=== PATIENT | male | born 1985 | race Asian ===

== ENCOUNTER 2021-10-25 07:49 | Emergency (ER) | payer MEDICAID ==
[~2021-10-25] VITALS: Ht 167.6 cm; Wt 60.4 kg
[2021-10-25 08:40] LABS: CLARITY,URINE CLOUDY (Clear); COLOR,URINE YELLOW (Yellow); GLUCOSE, URINE NEGATIVE (Neg); KETONES,URINE NEGATIVE (Neg); LEUKOCYTE ESTERASE ,URINE MODERATE (Neg); NITRITES, URINE NEGATIVE (Neg); OCCULT BLOOD,URINE TRACE-INTACT (Neg); PROTEIN,URINE TRACE mg/dl (Neg); UROBILINOGEN,URINE 0.2 E.U/dL (0.2-1.0)
[2021-10-25 08:41] LABS: UA COLLECTION TYPE CLN CATCH MIDSTREAM
[2021-10-25 08:54] LABS: MUCUS STRANDS FEW /LPF (Neg); SQUAMOUS EPITHELIAL CELL,UR NONE SEEN /LPF (FEW); WBC,URINE TNTC /HPF (0-4)
[2021-10-25 08:55] VITALS: BP 97/67
[2021-10-25 08:57] LABS: BACTERIA,URINE FEW /HPF (Neg); WBC CLUMPS,URINE FEW /HPF (NEGATIVE)
[2021-10-25] MEDS ORDERED: DOXYCYCLINE 100MG CAPSULE PO STA (09:00)
[2021-10-25] MEDS ORDERED: CefTRIAXone 1000mg IM Kit (w/lidocaine diluent) IM ONE (09:00)
[2021-10-25] MEDS ORDERED: CEPH-585 PO (09:05)
[2021-10-25] MEDS ORDERED: DOXY100C43 PO (09:05)
== END 2021-10-25 09:47 | disposition home or self-care (01) ==
LOC: ER 07:49
DX: N39.0 Urinary tract infection, site not specified (principal); Z72.89 Other problems related to lifestyle; Z79.899 Other long term (current) drug therapy
CPT/HCPCS: 36415; 81001; 87491; 87591; 96372; 99283; J0696

== ENCOUNTER 2022-05-03 | Emergency (ER) | payer MEDICAID, OTHER ==
[~2022-05-03] VITALS: Ht 167.6 cm; Wt 59.1 kg
[~2022-05-03] MED LIST: CEPH-585 PO
[2022-05-03] MEDS ORDERED: ketorolac trometh inj. 60 MG/2 ML VIAL IM ONE (06:40)
[2022-05-03] MEDS ORDERED: acetaminophen 325mg tablet PO ONE (06:40)
[2022-05-03] MEDS ORDERED: IBUP-1986 PO (06:43)
[2022-05-03] MEDS ORDERED: ACET-1025 PO (06:43)
[2022-05-03 06:49] VITALS: BP 107/55
== END 2022-05-03 06:56 | disposition home or self-care (01) ==
LOC: ER 00:01
DX: R51.9 Headache, unspecified (principal); V87.7XXA Person injured in collision between other specified motor vehicles (traffic), initial encounter; Y93.89 Activity, other specified; Y92.89 Other specified places as the place of occurrence of the external cause; Y99.8 Other external cause status
CPT/HCPCS: 96372; 99283; J1885

== ENCOUNTER 2023-01-08 23:17 | Emergency (ER) | payer MEDICAID ==
[~2023-01-08] VITALS: Ht 167.6 cm; Wt 59.1 kg
[~2023-01-08 23:17] MED LIST changes: -CEPH-585 PO; +IBUP-1986 PO
[2023-01-08 23:50] VITALS: BP 119/85; PULSE 80; RESP 16; TEMP 98; O2SAT 96
[2023-01-09 00:18] LABS: BILIRUBIN,URINE NEGATIVE (Neg); CLARITY,URINE TURBID (Clear); COLOR,URINE YELLOW (Yellow); GLUCOSE, URINE NEGATIVE (Neg); KETONES,URINE NEGATIVE (Neg); LEUKOCYTE ESTERASE ,URINE LARGE (Neg); NITRITES, URINE NEGATIVE (Neg); OCCULT BLOOD,URINE SMALL (Neg); PROTEIN,URINE NEGATIVE (Neg); UROBILINOGEN,URINE 0.2 E.U/dL (0.2-1.0)
[2023-01-09 00:26] LABS: UA COLLECTION TYPE OTHER
[2023-01-09 00:28] LABS: MUCUS STRANDS FEW /LPF (Neg); SQUAMOUS EPITHELIAL CELL,UR NONE SEEN /LPF (FEW)
[2023-01-09 00:35] LABS: BACTERIA,URINE FEW /HPF (Neg)
[2023-01-09 00:36] LABS: RENAL CELLS, URINE MODERATE /HPF
[2023-01-09 00:45] LABS: WBC CLUMPS,URINE MANY /HPF (NEGATIVE)
[2023-01-09] MEDS ORDERED: azithromycin 250mg tablet PO ONE (01:00)
[2023-01-09] MEDS ORDERED: CefTRIAXone 500MG IM Kit w/LIDOcaine IM ONE (01:00)
== END 2023-01-09 01:16 | disposition home or self-care (01) ==
LOC: ER 23:17
DX: A54.9 Gonococcal infection, unspecified (principal); A74.89 Other chlamydial diseases; A64 Unspecified sexually transmitted disease
CPT/HCPCS: 36415; 81001; 87088; 87491; 87591; 96372; 99283; J0696

== ENCOUNTER 2023-03-10 10:01 | Emergency (ER) | payer MEDICAID ==
[~2023-03-10] VITALS: Ht 167.6 cm; Wt 60.0 kg
--- NOTE | 2023-03-10 10:55 | NUR ---
LEASE ATTENDANT ASSESSMENT REVIEWED, BY POLO RN; APPROVED
[2023-03-10] MEDS ORDERED: CefTRIAXone 500MG IM Kit w/LIDOcaine IM ONE (12:15)
[2023-03-10] MEDS ORDERED: DOXY100C43 PO (12:18)
[2023-03-10 12:48] LABS: SYPHILIS SCREENING TEST POC NEGATIVE (Negative)
[2023-03-10 13:08] VITALS: BP 137/88; PULSE 61; RESP 18; TEMP 97.5; O2SAT 100
== END 2023-03-10 13:15 | disposition home or self-care (01) ==
LOC: ER 10:01
DX: A53.9 Syphilis, unspecified (principal)
CPT/HCPCS: 36415; 96372; 99283; J0696

== ENCOUNTER 2024-04-23 13:37 | Emergency (ER) | payer MEDICAID ==
[~2024-04-23] VITALS: Ht 167.6 cm; Wt 62.0 kg
[2024-04-23] MEDS: normal saline 1000ml 1,000 ML IV ONE (15:01)
[2024-04-23 15:24] LABS: BASOPHILS % (AUTO) 0.3 % (0-1); EOSINOPHILS % (AUTO) 0.3 % (0-6); HEMATOCRIT 34.6 % (42.0-52.0); HEMOGLOBIN 11.8 g/dl (14.0-17.9); LYMPHOCYTES # (AUTO) 1.4 X10'3 (1.1-4.8); LYMPHOCYTES % (AUTO) 27.2 % (21-51); MEAN CORPUSCULAR HEMOGLOBIN 32.2 PG (27.0-31.0); MEAN CORPUSCULAR HGB CONC 34.1 g/dL (33.0-36.5); MEAN CORPUSCULAR VOLUME 94.4 FL (78-98); MEAN PLATELET VOLUME 7.7 FL (7.4-10.4); MONOCYTES # (AUTO) 0.2 X10'3 (0-0.9); MONOCYTES % (AUTO) 4.4 % (2-12); NEUTROPHILS # (AUTO) 3.5 X10'3 (1.8-7.7); NEUTROPHILS % (AUTO) 67.8 % (42-75); PLATELET COUNT 165 X10'3 (140-440); RED BLOOD COUNT 3.66 X10'6 (4.70-6.10); RED CELL DISTRIBUTION WIDTH 14.5 % (11.5-14.5); WHITE BLOOD COUNT 5.2 X10'3 (4.5-11.0)
[2024-04-23 15:28] LABS: ALANINE AMINOTRANSFERASE 24 U/L (12-78); ALBUMIN 3.6 G/DL (3.4-5.0); ALBUMIN/GLOBULIN RATIO 1.2 (1.1-1.5); ALKALINE PHOSPHATASE 50 IU/L (46-116); ANION GAP 8 (8-16); ASPARTATE AMINO TRANSFERASE 22 U/L (10-37); BILIRUBIN,TOTAL 0.8 MG/DL (0.1-1.0); BLOOD UREA NITROGEN 21 MG/DL (7-18); BUN/CREATININE RATIO 17.2 (10.0-20.0); CALCIUM 7.7 MG/DL (8.5-10.1); CHLORIDE 109 MMOL/L (99-107); CREATININE 1.22 MG/DL (0.60-1.10); GLUCOSE 111 MG/DL (70-104); POTASSIUM 3.9 MMOL/L (3.5-5.1); SODIUM 140 MMOL/L (135-145); TOTAL CARBON DIOXIDE 22.8 MMOL/L (24-32); TOTAL PROTEIN 6.6 G/DL (6.4-8.2); eCRCL 71 ML/MIN; eGFR 66 ML/MIN
[2024-04-23] MEDS: LORazepam 2 mg/ml vial IV ONE (15:37)
[2024-04-23] MEDS: cyanocobalamin 1,000 mcg/ml inj IM ONE (15:38)
[2024-04-23 18:02] VITALS: BP 103/65; PULSE 65; RESP 14; TEMP 97.8; O2SAT 100
== END 2024-04-23 18:28 | disposition home or self-care (01) ==
LOC: ER 13:37
DX: T41.0X1A Poisoning by inhaled anesthetics, accidental (unintentional), initial encounter (principal); Z79.1 Long term (current) use of non-steroidal anti-inflammatories (NSAID); Y92.89 Other specified places as the place of occurrence of the external cause
CPT/HCPCS: 36415; 80053; 85025; 96372; 96374; 99284; J2060; J3420; J7030

== ENCOUNTER 2024-06-18 06:24 | Emergency (ER) | payer MEDICAID ==
[~2024-06-18] VITALS: Ht 167.6 cm; Wt 58.1 kg
[2024-06-18] MEDS ORDERED: RISP0.5T74 PO (07:05)
[2024-06-18] MEDS: risperiDONE 0.5mg tablet PO ONE (07:10)
[2024-06-18] MEDS: risperiDONE 2mg tablet PO ONE (07:12)
[2024-06-18 07:13] VITALS: BP 118/74; PULSE 95; RESP 14; TEMP 98.1; O2SAT 99
== END 2024-06-18 07:22 | disposition home or self-care (01) ==
LOC: ER 06:25
DX: G25.81 Restless legs syndrome (principal); F22 Delusional disorders; F19.10 Other psychoactive substance abuse, uncomplicated
CPT/HCPCS: 99283